=== PATIENT | female | born 1955 | race American Indian/Alaskan Native ===

== ENCOUNTER 2016-06-23 08:37 | Outpatient (CLI) | payer BC, OTHER ==
--- NOTE | 2016-06-23 10:09 | Mammography Report ---
Left mammogram and left breast ultrasound: Based on recent screening study from January 2016 additional compression CC and lateral views of the left breast are performed. There a vague 1 cm area of asymmetric focal breast tissue in the retroareolar region approximately 3-1/2 cm posterior to the level. There is no distortion and no associated calcification. Ultrasound in the area of concern demonstrates normal breast tissue with no focal abnormality. Impression: Probably benign left asymmetry. Recommendation: Repeat left mammogram in 6 months. The findings and recommendations have been discussed with the patient. BI-RADS CATEGORY: 3 = Probably benign ACR BI-RADS MAMMOGRAPHIC CODES: 0 = Needs additional imaging evaluation; 1 = Negative; 2 = Benign; 3 = Probably benign; 4 = Suspicious; 5 = Malignant; 6 = Known biopsy-proven malignancy COMMENT: 1. Dense breast tissue, i.e., adenosis, fibrocystic changes, etc., may obscure an underlying neoplasm. 2. Approximately 10% of cancers are not detected with mammography. 3. A negative mammography report should not delay biopsy if a clinically suspicious mass is present.
== END 2016-06-23 08:38 | disposition home or self-care (01) ==
LOC: MAMMO 08:37
PROVIDERS: ATTEND Family Medicine
DX: R92.8 Other abnormal and inconclusive findings on diagnostic imaging of breast (principal)
CPT/HCPCS: 76642; G0206

== ENCOUNTER 2016-12-24 09:44 | Day surgery (SDC) | payer BC ==
[2016-12-24] MEDS ORDERED: PEPCID IV NR (10:38)
[2016-12-24] MEDS ORDERED: NACL 0.9% 1000 ML 1,000 ML IV SCH (10:39)
--- NOTE | 2016-12-24 10:40 | Anesthesia Day of Surgery ---
Anesthesia Day of Surgery - Day of Surgery Patient Examined: Yes Patient H&P Reviewed: Yes Patient is NPO: Yes
--- NOTE | 2016-12-24 10:40 | Anesthesia Consultation ---
Anesthesia Consult and Med Hx Date of service: 12/24/16 - Airway Anesthetic Teeth Evaluation: Good (missing one lower tooth), Dentures (upper dentures) ROM Head & Neck: Adequate Mental/Hyoid Distance: Adequate Mallampati Class: Class II Intubation Access Assessment: Probably Good - Pulmonary Exam CTA: Yes - Cardiac Exam Cardiac Exam: RRR - Pre-Operative Health Status ASA Pre-Surgery Classification: ASA3 Proposed Anesthetic Plan: General - Pulmonary Hx Smoking: No Hx Sleep Apnea: No - Central Nervous System Hx Psychiatric Problems: Yes (sever dementia, seemed lucid when talked with her and in preop) - Other Systems Hx Alcohol Use: No Hx Substance Use: No Hx Cancer: No
[2016-12-24] MEDS ORDERED: ZOFRAN IV PRN (11:36)
[2016-12-24] MEDS ORDERED: DILAUDID IV PRN (11:36)
[2016-12-24] MEDS ORDERED: DECADRON ONE (12:06)
[2016-12-24] MEDS ORDERED: ROBINUL ONE (12:06)
[2016-12-24] MEDS ORDERED: NEOSTIGMINE ONE ×2 (12:06)
[2016-12-24] MEDS ORDERED: ZOFRAN ONE (12:06)
[2016-12-24] MEDS ORDERED: ZEMURON IV ONE (12:06)
[2016-12-24] MEDS ORDERED: XYLOCAINE MPF 2% ONE (12:06)
[2016-12-24] MEDS ORDERED: DILAUDID ONE (12:07)
[2016-12-24] MEDS ORDERED: SUBLIMAZE ONE (12:07)
[2016-12-24] MEDS ORDERED: DIPRIVAN 10 MG/ML IV ONE (12:07)
[2016-12-24] MEDS ORDERED: MARCAINE 0.25% INFILTRATI ONE ×2 (12:12→12:59)
[2016-12-24] MEDS ORDERED: NACL 0.9% IR ONE (12:59)
[2016-12-24] MEDS ORDERED: NACL 0.9% 1000 ML 1,000 ML ONE (13:48)
--- NOTE | 2016-12-24 13:56 | Short Stay Summary ---
Short Stay Documentation Date of service: 12/24/16 Narrative H&P: see H&P - Allergies and Medications Current Medications: Allergies No Known Allergies Allergy (Unverified 01/12/16 07:31) Home Medications Medication Instructions Recorded Confirmed Last Taken Type Cyanocobalamin (Vitamin B-12) 2,500 mcg PO DAILY 12/22/16 12/22/16 Unknown History [Vitamin B12] Donepezil [Aricept] 10 mg PO QDAY 12/22/16 12/22/16 Unknown History Active Medications Famotidine (Pepcid) 20 mg IV PREOP NR Stop: 12/24/16 23:59 Last Admin: 12/24/16 11:03 Dose: 20 mg Hydromorphone HCl (Dilaudid) 0.5 mg IV Q10MIN PRN PRN Reason: Pain , Severe (7-10) Stop: 12/24/16 23:59 Sodium Chloride (Nacl 0.9% 1000 Ml) 1,000 mls @ 75 mls/hr IV DIRECT KATE Stop: 12/24/16 23:59 Last Admin: 12/24/16 11:03 Dose: 75 mls/hr Ondansetron HCl (Zofran) 4 mg IV ONCE PRN PRN Reason: Nausea And Vomiting Stop: 12/24/16 23:59 - Brief post op/procedure progress note Date of procedure: 12/24/16 Pre-op diagnosis: BIH Post-op diagnosis: same Procedure: Lap BIH repair with mesh Anesthesia: GETA Surgeon: LEONARDO SUAREZ (Wanda MCGRAW) Estimated blood loss: none Pathology: none Condition: stable - Disposition Condition at discharge: Good Disposition: DC-01 TO HOME OR SELFCARE Short Stay Discharge Plan Activity: advance as tolerated, other (no heavy lifting for 2 weeks) Weight Bearing Status: Weight Bear as Tolerated Diet: regular Wound: keep clean and dry Follow up with: LEONARDO SUAREZ MD [Staff Physician] - 7 Days
[2016-12-24] MEDS ORDERED: ANCEF/STERILE WATER 2 GM/20 ML IV NR (15:00)
--- NOTE | 2016-12-24 15:16 | Post Anesthesia Evaluation ---
- Post Anesthesia Evaluation Patient Participated: Yes Airway Patent: Yes Stable Respiratory Function: Yes Temp > 96.8F: Yes Pain Manageable: Yes Adequeate Hydration: Yes Anesthesia Complications: No Block Receding Appropriately: Not Applicable
[2016-12-24 16:38] VITALS: BP 150/72
--- NOTE | 2016-12-25 01:30 | Operative Report ---
PREOPERATIVE DIAGNOSIS: Bilateral inguinal hernia. POSTOPERATIVE DIAGNOSIS: Bilateral inguinal hernia. PROCEDURE: Laparoscopic bilateral inguinal hernia repair and mesh. SURGEON: Dr. Littlejohn. CERTIFIED MEDICAL DOSIMETRIST: Wanda Smallwood. ANESTHESIA: General. ESTIMATED BLOOD LOSS: Minimal. COMPLICATIONS: None. DRAINS: None. SPECIMEN: None. The patient tolerated the procedure well. FINDINGS: Bilateral indirect inguinal hernias repaired laparoscopically with mesh. INDICATIONS: This is a 61-year-old female with symptomatic bilateral inguinal hernia here for repair. DESCRIPTION OF PROCEDURE: The patient was taken to the OR and placed supine on the operating room table where general anesthesia was obtained. Her anterior abdominal was prepped and draped in sterile fashion. A supraumbilical incision was made approximately 1 cm in length. A Veress needle was attempted to be placed in the peritoneal cavity. There was lot of laxity in the abdominal wall here due to previous weight loss, could not get into the peritoneal cavity safely. Due to this, I placed a left upper quadrant 0.5-cm incision. Through this, the Veress needle was placed in the peritoneal cavity. CO2 was used to insufflate the peritoneal cavity and then 10-mm trocar was placed in the other incision that had been previously placed. A 5-mm trocar was placed in either side of the rectus fascia. The patient was placed in Trendelenburg. The patient was found to have obvious bilateral indirect inguinal hernias. I started on the left side first. A transverse incision was made above the inguinal canal and along the peritoneum. A preperitoneal pocket was then made and extended inferiorly to Aldo's ligament. A pocket was made laterally for future mesh placement and the indirect hernia sac was completely reduced back into the peritoneal cavity keeping the round ligament intact. A window was made around the round ligament and a piece of mesh, which had been cut to fit was placed around the round ligament to cover the floor of the inguinal canal and prevent reherniation. The mesh was secured circumferentially with ProTack and then the peritoneum was reattached superiorly with ProTacker as well. In similar fashion, the right side was begun. The left indirect hernia was larger than the right. A peritoneal incision was made above the inguinal canal. Preperitoneal dissection was taken all the way down to the cord structures. Aldo's ligament was identified medially. A pocket was made laterally for future mesh placement. There was a fair amount of fat in the hernia sac, which had to be reduced as well as hernia sac. Once good reduction was obtained, a window was made around the round ligament in a similar fashion. A piece of Parietex mesh which had been cut to fit was placed in the pocket, secured circumferentially with the ProTacker. After this was completed, the peritoneum was reattached superiorly with a ProTacker. After adequate hemostasis, all ports were removed. CO2 was evacuated. Rectus fascia at the 10-mm trocar site was closed with 0 Vicryl and all skin incisions closed in subcuticular fashion. Dermabond was placed on the incision. The patient tolerated the procedure well. JOB# [id number] MARCI/JOHNATHON
== END 2016-12-24 09:45 | disposition home or self-care (01) ==
LOC: OR 09:44
PROVIDERS: ATTEND Surgery
DX: K40.20 Bilateral inguinal hernia, without obstruction or gangrene, not specified as recurrent (principal); F03.90 Unspecified dementia, unspecified severity, without behavioral disturbance, psychotic disturbance, mood disturbance, and anxiety; Z79.899 Other long term (current) drug therapy
CPT/HCPCS: 36415; 49650; 84132; C1781; J0690; J1100; J1170; J2405; J2704; J2710; J3010; J7030

== ENCOUNTER 2018-07-18 14:23 | Emergency (ER) | payer BC, OTHER ==
[2018-07-18] MEDS ORDERED: ATIVAN IM PRN (15:28)
--- NOTE | 2018-07-18 15:29 | Emergency Department Report ---
ED General Adult HPI - General Chief complaint: Psych Stated complaint: EVALUATION Time Seen by Provider: 07/18/18 15:17 Source: patient, family, EMS (ems notes not available at time of chart dictation), RN notes reviewed Mode of arrival: Stretcher Limitations: Other (patient demented, patient is a poor historian) - History of Present Illness Initial comments: Primary care DrPrince: [place] Past medical history: Dementia History obtained by speaking to the patient's , Mr. Nelson Victoria; [id number]. This is a 63-year-old female with a history of dementia. She was sent to the emergency room from a local [facility] for aggressive behavior and inability to be D escalated. This is an acute on chronic problem. It has since resolved. The patient denies all complaints. The patient's indicates no recent trauma, fever, lethargy, projectile vomiting. There is no indication of homicidality or suicidality from the patient. The patient has no complaints at this time. The indicates the patient is back to her baseline, consistent with her chronic dementia. I contacted the [facility] network, and discussed the case with Dr. Lehman, who indicated that the patient was sent to the emergency room as her behavior was not able to be controlled at the outpatient clinic. However, she reports that the patient can follow-up with her primary care doctor tomorrow, and that a field nurse case manager and social service technician have already been involved, and they will be able to coordinate with the to arrange intermediate care, and definitive nursing and home care if he is not able to care for her. The indicates that he feels comfortable with this plan. No recent trauma. Patient not able to indicate exacerbating or relieving factors, radiation, or qualitative nature of her symptoms. -: Sudden Radiation: other Severity scale (0 -10): 0 Quality: other Consistency: other Improves with: other Worsens with: other Associated Symptoms: confusion (baseline), other (review of systems as per ). denies: chest pain, cough, diaphoresis, fever/chills, headaches, loss of appetite, malaise, nausea/vomiting, rash, seizure, shortness of breath, syncope, weakness - Related Data Home Medications Medication Instructions Recorded Confirmed Last Taken Cyanocobalamin (Vitamin B-12) 2,500 mcg PO DAILY 12/22/16 12/24/1617 [Vitamin B12] Donepezil [Aricept] 10 mg PO QDAY 12/22/16 12/24/16 12/10/16 Previous Rx's Medication Instructions Recorded Last Taken Type Nitrofurantoin [place]/M-Cryst 100 mg PO Q12HR #14 capsule 07/18/18 Unknown Rx [Macrobid CAP] Allergies Allergy/AdvReac Type Severity Reaction Status Date / Time No Known Allergies Allergy Verified 07/18/18 14:56 ED Review of Systems ROS: Stated complaint: EVALUATION Other details as noted in HPI Constitutional: denies: fever Eyes: denies: eye discharge ENT: denies: epistaxis Respiratory: denies: cough Cardiovascular: denies: chest pain Gastrointestinal: denies: abdominal pain, nausea, vomiting Genitourinary: denies: dysuria Musculoskeletal: denies: back pain Skin: denies: lesions Neurological: confusion Psychiatric: other (patient having hallucinations) ED Past Medical Hx - Past Medical History Previous Medical History?: Yes Hx Dementia: Yes Hx HIV: No - Social History Smoking Status: Never Smoker Substance Use Type: None - Medications Home Medications: Home Medications Medication Instructions Recorded Confirmed Last Taken Type Cyanocobalamin (Vitamin B-12) 2,500 mcg PO DAILY 12/22/16 12/24/16 12/23/16 History [Vitamin B12] Donepezil [Aricept] 10 mg PO QDAY 12/22/16 12/24/16 12/10/16 History Nitrofurantoin [place]/M-Cryst 100 mg PO Q12HR #14 capsule 07/18/18 Unknown Rx [Macrobid CAP] ED Physical Exam - General Limitations: Other General appearance: alert, in no apparent distress - Head Head exam: Present: atraumatic, normocephalic - Eye Eye exam: Present: normal appearance, EOMI, other (visual acuity intact to finger counting, color perception at a assistance). Absent: nystagmus - ENT ENT exam: Present: normal exam, normal orophraynx, mucous membranes moist, normal external ear exam - Neck Neck exam: Present: normal inspection, full ROM. Absent: tenderness, meningismus - Respiratory Respiratory exam: Present: normal lung sounds bilaterally. Absent: respiratory distress - Cardiovascular Cardiovascular Exam: Present: regular rate, normal rhythm, normal heart sounds. Absent: bradycardia, tachycardia, irregular rhythm, systolic murmur, diastolic murmur, rubs, gallop - GI/Abdominal GI/Abdominal exam: Present: soft. Absent: distended, tenderness, guarding, rebound, rigid, pulsatile mass - Extremities Exam Extremities exam: Present: normal inspection, full ROM, other (2+ pulses noted in the bilateral upper, lower extremities. Compartments soft. No long bony tenderness. The pelvis is stable.). Absent: calf tenderness - Back Exam Back exam: Present: normal inspection, full ROM. Absent: tenderness, CVA tenderness (R), paraspinal tenderness, vertebral tenderness - Neurological Exam Neurological exam: Present: alert (alert to name and location. Does not know the month, does not know the year), normal gait, other (Extraocular movements intact. Tongue midline. No facial droop. Facial sensation intact to light touch in the V1, V2, V3 distribution bilaterally. 5 and 5 strength in 4 extremities.. Sensation is intact to light touch in 4 extremities.). Absent: motor sensory deficit - Psychiatric Psychiatric exam: Absent: homicidal ideation, suicidal ideation - Skin Skin exam: Present: warm, dry, intact, normal color. Absent: rash ED Course Vital Signs 07/18/18 07/18/18 14:46 15:28 Temperature 98.6 F Pulse Rate 77 Respiratory 16 16 Rate Blood Pressure 145/88 Blood Pressure 145/88 [Left] O2 Sat by Pulse 99 99 Oximetry - Reevaluation(s) Reevaluation #1: 07/18/18 16:18 Differential diagnosis, including not limited to: Intracranial lesion, dementia, urinary tract infection Assessment and plan: 63-year-old female who is pleasant, calm and cooperative, with a known history of dementia, with no evidence of violent behavior in the emergency room, who is not indicated homicidality or suicidality. The patient is most likely experiencing the natural progression of her underlying dementia. She does not require a 1013 at this point in time. Her is very involved in her care. Physically, she appears to be well kept, does not have any evidence of physical abuse or trauma. I have already discussed the case with the [facility], and they will arrange for close outpatient follow-up. [facility] also has social work lecturer in place, and can assist the patient's further with outpatient care and placement if necessary. Patient also seen and evaluated by our field nurse case manager. We will obtain basic laboratory studies, urinalysis, and noncontrast CT scan of the brain. Highly doubt acute emergent condition at this point in time Reevaluation #2: 07/18/18 17:[address] scan of the brain demonstrates the following findings: No acute disease, appearance of mild ventriculomegaly in the lateral third, fourth ventricles. Communicating hydrocephalus cannot be excluded. The patient has been in the emergency room for a few hours without recurrent events or clinical decompensation. Patient has follow-up tomorrow with [facility]. Return precautions were reviewed with the , who verbalized understanding. ED Medical Decision Making - Lab Data Result diagrams: 07/18/18 15:27 07/18/18 15:27 Vital Signs 07/18/18 07/18/18 14:46 15:28 Temperature 98.6 F Pulse Rate 77 Respiratory 16 16 Rate Blood Pressure 145/88 Blood Pressure 145/88 [Left] O2 Sat by Pulse 99 99 Oximetry Lab Results 07/18/18 07/18/18 07/18/18 Range/Units 15:27 15:27 15:27 WBC (4.5-11.0) K/mm3 RBC (3.65-5.03) M/mm3 Hgb (10.1-14.3) gm/dl Hct (30.3-42.9) % MCV (79-97) fl MCH (28-32) pg MCHC (30-34) % RDW (13.2-15.2) % Plt Count (140-440) K/mm3 Lymph % (Auto) (13.4-35.0) % [place] % (Auto) (0.0-7.3) % Eos % (Auto) (0.0-4.3) % Baso % (Auto) (0.0-1.8) % Lymph # (1.2-5.4) K/mm3 [place] # (0.0-0.8) K/mm3 Eos # (0.0-0.4) K/mm3 Baso # (0.0-0.1) K/mm3 Seg Neutrophils % (40.0-70.0) % Seg Neutrophils # (1.8-7.7) K/mm3 Sodium 140 (137-145) mmol/L Potassium 3.7 (3.6-5.0) mmol/L Chloride 102.3 (98-107) mmol/L Carbon Dioxide 29 (22-30) mmol/L Anion Gap 12 mmol/L BUN 11 (7-17) mg/dL Creatinine 0.7 (0.7-1.2) mg/dL Estimated GFR > 60 ml/min BUN/Creatinine Ratio 16 % Glucose 94 (65-100) mg/dL Calcium 8.9 (8.4-10.2) mg/dL Total Creatine Kinase (30-135) units/L Salicylates < 0.3 L (2.8-20.0) mg/dL Acetaminophen < 5.0 L (10.0-30.0) ug/mL Plasma/Serum Alcohol (0-0.07) % 07/18/18 07/18/18 07/18/18 Range/Units 15:27 15:27 15:27 WBC 6.0 (4.5-11.0) K/mm3 RBC 5.02 (3.65-5.03) M/mm3 Hgb 13.0 (10.1-14.3) gm/dl Hct 40.5 (30.3-42.9) % MCV 81 (79-97) fl MCH 26 L (28-32) pg MCHC 32 (30-34) % RDW 16.3 H (13.2-15.2) % Plt Count 239 (140-440) K/mm3 Lymph % (Auto) 40.7 H (13.4-35.0) % [place] % (Auto) 5.3 (0.0-7.3) % Eos % (Auto) 0.6 (0.0-4.3) % Baso % (Auto) 0.3 (0.0-1.8) % Lymph # 2.4 (1.2-5.4) K/mm3 [place] # 0.3 (0.0-0.8) K/mm3 Eos # 0.0 (0.0-0.4) K/mm3 Baso # 0.0 (0.0-0.1) K/mm3 Seg Neutrophils % 53.1 (40.0-70.0) % Seg Neutrophils # 3.2 (1.8-7.7) K/mm3 Sodium (137-145) mmol/L Potassium (3.6-5.0) mmol/L Chloride (98-107) mmol/L Carbon Dioxide (22-30) mmol/L Anion Gap mmol/L BUN (7-17) mg/dL Creatinine (0.7-1.2) mg/dL Estimated GFR ml/min BUN/Creatinine Ratio % Glucose (65-100) mg/dL Calcium (8.4-10.2) mg/dL Total Creatine Kinase 74 (30-135) units/L Salicylates (2.8-20.0) mg/dL Acetaminophen (10.0-30.0) ug/mL Plasma/Serum Alcohol < 0.01 (0-0.07) % - Radiology Data Radiology results: report reviewed, image reviewed Critical care attestation.: If time is entered above; I have spent that time in minutes in the direct care of this critically ill patient, excluding procedure time. ED Disposition Clinical Impression: History of dementia Disposition: DC-01 TO HOME OR SELFCARE Is pt being admited?: No Does the pt Need Aspirin: No Condition: Good Additional Instructions: Continue outpatient medications. Take the Macrobid prescription as directed. Follow up tomorrow with your physicians at [facility] as scheduled. CT scan of the brain demonstrated nonspecific findings, which should be followed up by her private neurologist or private physician. Please return to the emergency room right away with new, worsening or different symptoms. Prescriptions: Nitrofurantoin [place]/M-Cryst [Macrobid CAP] 100 mg PO Q12HR #14 capsule Referrals: [facility] DIEGO CHOI MD [Primary Care Provider] - 3-5 Days
[2018-07-18 15:40] LABS: Basophils % (Auto) 0.3 % (0.0-1.8); Eosinophils % (Auto) 0.6 % (0.0-4.3); Hematocrit 40.5 % (30.3-42.9); Lymphocytes # (Auto) 2.4 K/mm3 (1.2-5.4); Lymphocytes % (Auto) 40.7 % (13.4-35.0); Mean Corpuscular HGB Conc 32 % (30-34); Mean Corpuscular Volume 81 fl (79-97); Monocytes # (Auto) 0.3 K/mm3 (0.0-0.8); Monocytes % (Auto) 5.3 % (0.0-7.3); Platelet Count 239 K/mm3 (140-440); Red Blood Count 5.02 M/mm3 (3.65-5.03); Red Cell Distribution Width 16.3 % (13.2-15.2)
[2018-07-18 15:52] LABS: BUN/Creatinine Ratio 16; Blood Urea Nitrogen 11 mg/dL (7-17); Calcium 8.9 mg/dL (8.4-10.2); Hemolysis Index 9
[2018-07-18 17:04] LABS: Bacteria,Urine 1+ /HPF (Negative); Bilirubin,Urine NEG (Negative); Blood,Urine SM (Negative); Color,Urine Yellow (Yellow); Mucus,Urine FEW /HPF; Protein,Urine <15 mg/dL mg/dL (Negative); Urobilinogen,Urine < 2.0 mg/dL (<2.0)
--- NOTE | 2018-07-18 17:42 | Cat Scan Report ---
FINAL REPORT EXAM: CT HEAD/BRAIN WO CON HISTORY: ams worsening dementia TECHNIQUE: 2.5 millimeter axial images from the skullbase to the vertex. Comparison: None FINDINGS: There is no evidence of intracranial hemorrhage or significant mass effect. There is no definite evidence of focal parenchymal abnormality. There is mild prominence of the lateral, 3rd and 4th ventricles and temporal horns that appears to be slightly out of proportion to the degree of prominence of the subarachnoid spaces. The visualized portions of the orbits, paranasal and mastoid sinuses are unremarkable. The bony structures are unremarkable. IMPRESSION: 1. Appearance of mild ventriculomegaly of the lateral, 3rd and 4th ventricles out of proportion to th e degree of prominence of the subarachnoid spaces. A component of communicating hydrocephalus cannot be excluded. Comparison with previous cranial imaging studies is recommended. If there is no clinical contraindication, MRI brain would be helpful for further evaluation.
[2018-07-18 18:32] VITALS: BP 140/84
== END 2018-07-18 18:00 | disposition home or self-care (01) ==
LOC: ED 14:23
DX: F03.90 Unspecified dementia, unspecified severity, without behavioral disturbance, psychotic disturbance, mood disturbance, and anxiety (principal)
CPT/HCPCS: 36415; 70450; 80048; 81001; 82550; 85025; 99285; G0480; 80320